=== PATIENT | female | born 1950 | race Caucasian/White ===

== ENCOUNTER 2016-07-02 14:35 | Emergency (ER) | payer MEDICARE, MEDICAID ==
--- NOTE | 2016-07-02 15:21 | Emergency Department Record ---
History of Present Illness - General Chief Complaint: Dizziness Stated Complaint: DIZZY/LOW BP Time Seen by Provider: 07/02/16 15:21 Source: Patient Mode of Arrival: Ambulatory Limitations: No limitations - History of Present Illness Initial Comments: The patient is here due to being weak and lightheaded yesterday at her sisters house. She reportedly did have a systolic BP in the 90's per the caregiver. Today the patient is feeling a lot better and denies any dizziness or lightheadedness. The caregiver states he did take her BP and it was 95/60 so he decided to bring her to the ER. The patient denies any MANDUJANO, CP, SOB, SOBEIDA or any nausea. She has been up walking today with no problems. She did trip last week and skin up her L knee but denies hitting her head. Complaint: Lightheadedness Onset/Timin -: Days(s) Timing: Unsure Description: Other History of Same: No Severity: Mild Improves With: Nothing Worsens With: Nothing Associated Symptoms: Denies other symptoms - [place] Coma Scale Eye Response: (4) Open spontaneously Motor Response: (6) Obeys commands Verbal Response: (5) Oriented [place] Total: 15 - Related Data Home Medications Medication Instructions Recorded Confirmed Last Taken Aspirin [Ecotrin] 81 mg PO DAILY 04/12/14 07/02/16 04/11/14 Buspirone HCl [Buspar] 15 mg PO DAILY 04/12/14 07/02/16 04/11/14 Buspirone HCl [Buspar] 30 mg PO QHS 04/12/14 07/02/16 04/11/14 Calcium Carbonate [Calcium] 500 mg PO TID 04/12/14 07/02/16 04/11/14 Carvedilol [Coreg] 3.125 mg PO DAILY 04/12/14 07/02/16 04/11/14 Cholecalciferol (Vitamin D3) 1,000 unit PO ASDIR 04/12/14 07/02/16 04/11/14 [Vitamin D] Citalopram Hydrobromide [Celexa] 40 mg PO DAILY 04/12/14 07/02/16 04/11/14 Docusate Sodium [Colace] 100 mg PO DAILY 04/12/14 07/02/16 04/11/14 Lactobacillus Combination No.4 1 each PO DAILY 04/12/14 07/02/16 04/11/14 [Probiotic] Levothyroxine Sodium [Synthroid] 25 mcg PO DAILYTHY 04/12/14 07/02/16 04/11/14 Loratadine [Claritin] 10 mg PO DAILY 04/12/14 07/02/16 04/11/14 Omeprazole [Prilosec] 20 mg PO BID 04/12/14 07/02/16 04/11/14 Simvastatin [Zocor] 40 mg PO QHS 04/12/14 07/02/16 04/11/14 Solifenacin Succinate [Vesicare] 5 mg PO DAILY 04/12/14 07/02/16 04/11/14 Previous Rx's Medication Instructions Recorded Cephalexin [Keflex] 500 mg PO TID #21 cap 07/02/16 Allergies Allergy/AdvReac Type Severity Reaction Status Date / Time codeine Allergy ALTERED Verified 04/12/14 08:15 MENTAL STATUS ibuprofen Allergy PT UNSURE Verified 04/12/14 08:15 OF REACTION Penicillins Allergy RASH Verified 04/12/14 08:15 Sulfa (Sulfonamide Allergy RASH Verified 04/12/14 08:15 Antibiotics) Travel Screening - Travel/Exposure Within Last 30 Days Have you traveled within the last 30 days?: No Review of Systems Constitutional: Denies: Chills, Fever Eyes: Denies: Eye discharge ENT: Denies: Congestion Respiratory: Denies: Cough, Dyspnea Cardiovascular: Denies: Arrhythmia, Chest pain, Dyspnea on exertion Endocrine: Denies: Fatigue Gastrointestinal: Denies: Diarrhea, Vomiting Genitourinary: Denies: Dysuria Musculoskeletal: Denies: Back pain Skin: Reports: Bruising (to the L knee.) Past Medical History - SOCIAL HISTORY Smoking Status: Former smoker Alcohol Use: None Drug Use: None - RESPIRATORY Hx Respiratory Disorders: Yes Hx COPD: Yes - CARDIOVASCULAR Hx Cardio Disorders: Yes Hx Hypertension: Yes Comment:: High cholestrol, aortic valve replacement - NEURO Hx Neuro Disorders: No - GI Hx GI Disorders: No - Hx Genitourinary Disorders: No - ENDOCRINE Hx Endocrine Disorders: Yes Hx Thyroid Disease: Yes - MUSCULOSKELETAL Hx Musculoskeletal Disorders: Yes - PSYCH Hx Psych Problems: Yes Hx Anxiety: Yes - HEMATOLOGY/ONCOLOGY Hx Hematology/Oncology Disorders: No Family Medical History Any Significant Family History?: Yes Hx Cancer: Father, Mother Physical Exam - General General Appearance: Alert, Oriented x3, Cooperative, No acute distress - Head Head exam: Atraumatic, Normocephalic, Normal inspection - Eye Eye exam: Normal appearance, PERRL - ENT Throat exam: Normal inspection. negative: Tonsillar erythema, Tonsillar exudate - Neck Neck exam: Normal inspection, Full ROM. negative: Lymphadenopathy, Meningismus , Tenderness - Respiratory Respiratory exam: Normal lung sounds bilaterally. negative: Respiratory distress - Cardiovascular Cardiovascular Exam: Regular rate, Normal rhythm, Normal heart sounds - GI/Abdominal GI/Abdominal exam: Soft, Normal bowel sounds. negative: Tenderness - Extremities Extremities exam: Tenderness (There is very mild L patellar tenderness with a mild 1x1 cm abrasion present. There is very mild erythema surrounding the wound. ). negative: Normal inspection, Joint swelling - Neurological Neurological exam: Alert, Normal gait (The patient is ambulating normally.), Oriented X3. negative: Abnormal gait, Altered, Motor sensory deficit Course Vital Signs 07/02/16 15:12 Temperature 98.0 F Pulse Rate 77 Respiratory 12 Rate Blood Pressure 117/68 Pulse Ox 97 - Reevaluation(s) Reevaluation #1: The patient is doing very well here and is ambulating normally. I did discuss the BP with the patient and caregiver and that the numbers are normal here. The patient also does not have any symptoms here also. She is instructed to see her [employer] Service Officer on Saturday as planned. 07/02/16 16:33 Medical Decision Making - Data Complexity MDM Data: EKG Ordered and/or Reviewed - Lab Data Result diagrams: 07/02/16 15:35 07/02/16 15:35 - EKG Data -: EKG Interpreted by Me EKG: No Acute Changes, Normal EKG Disposition Disposition: Discharge Clinical Impression: Weakness generalized Disposition: Home, Self-Care Condition: (1) Good Instructions: Dizziness (ED) Additional Instructions: Please continue your regular medicines and add the oral Antibiotic as directed. Please see your [employer] Community Service Officer later this week as planned. Return to the ER for any problems or issues. Prescriptions: Cephalexin [Keflex] 500 mg PO TID #21 cap Forms: Patient Portal Access Time of Disposition: 16:28
[2016-07-02] MEDS ORDERED: 0.9 % SODIUM CHLORIDE 1,000 ML BAG IV ONE (15:27)
[2016-07-02 15:43] LABS: BASO % 0.4 % (0-6); EOS % 5.4 % (0-6); GRAN % 56.1 % (47-80); HEMATOCRIT 36.5 % (35.0-47.0); HEMOGLOBIN 12.1 gm/dl (11.6-16.0); LYMPH % 27.4 % (16-45); MEAN CELL VOLUME 90.1 fl (81-97); MEAN CORPUSCULAR HEMOGLOBIN 29.9 pg (27-33); MEAN CORPUSCULAR HGB CONC 33.2 g/dl (32-36); MEAN PLATELET VOLUME 8.1 fl (7.4-10.4); MONO % 10.7 % (0-9); PLATELET COUNT 139 K/uL (130-400); RED BLOOD COUNT 4.05 M/uL (3.80-5.40); RED CELL DISTRIBUTION WIDTH 13.1 % (11.5-14.5); WHITE BLOOD COUNT W/O DIFF 5.7 K/uL (4.2-12.2)
[2016-07-02 15:58] LABS: ALB/GLOB RATIO 1.4 (1.1-1.8); ALBUMIN 4.4 gm/dL (3.5-5.0); ALKALINE PHOSPHATASE 99 U/L (38-126); ALT/SGPT 36 U/L (9-52); ANION GAP 10.5 (7-16); AST/SGOT 31 U/L (14-36); BILIRUBIN,TOTAL 0.45 mg/dL (0.2-1.3); BLOOD UREA NITROGEN 13 mg/dL (7-17); CARBON DIOXIDE 28.5 mmol/L (22-30); CREATINE PHOSPHOKINASE 68 U/L (30-135); CREATININE 0.8 mg/dL (0.52-1.04); EST GLOMERULAR FILTRATION RATE > 60 ml/min; GLUCOSE,RANDOM 96 mg/dL (70-110); TOTAL PROTEIN 7.5 gm/dL (6.3-8.2)
[2016-07-02] MEDS ORDERED: Diph,Pert(Acell),Tet Vac 0.5 ML SYR IM ONE (16:08)
[2016-07-02 16:10] LABS: CKMB 1.5 ug/L (0-6)
[2016-07-02 16:12] LABS: TROPONIN I < 0.012 ng/mL (0.00-0.034)
== END 2016-07-02 16:50 | disposition home or self-care (01) ==
LOC: ER 14:35
DX: S80.212A Abrasion, left knee, initial encounter (principal); R53.1 Weakness; R42 Dizziness and giddiness; I95.9 Hypotension, unspecified; I10 Essential (primary) hypertension; J44.9 Chronic obstructive pulmonary disease, unspecified; Z87.891 Personal history of nicotine dependence
CPT/HCPCS: 80053; 82550; 82553; 84484; 85025; 90715; 93005; 93010; 96360; 96372; 99284; J7030

== ENCOUNTER 2017-05-23 18:11 | Emergency (ER) | payer MEDICARE, MEDICAID ==
--- NOTE | 2017-05-23 18:39 | Emergency Department Record ---
History of Present Illness - General Chief Complaint: Cough Stated Complaint: COUGH AND FEVER Time Seen by Provider: 05/23/17 18:31 Source: Patient Mode of Arrival: Ambulatory Limitations: No limitations - History of Present Illness Initial Comments: 67 yo female presents with a cough for about 3 days. The cough has been non productive. She did not develop a fever until today. [facility] A resident did test positive for the Influenza. No vomiting, chest pain or shortness of breath. She has had a few loose stools. No abdominal pain. She did have a flue shot. She did start antibiotics yesterday (Zithromax). MD Complaint: Cough, Fever, Nasal congestion, Rhinorrhea Onset/Timin -: Days(s) Consistency: Constant Improves With: Nothing Worsens With: Other (cough) Context: Sick contacts Associated Symptoms: Cough, Diarrhea Treatments Prior to Arrival: Acetaminophen (2 tabs) - Related Data Previous Rx's Medication Instructions Recorded Oseltamivir Phosphate [Tamiflu] 75 mg PO BID #10 capsule 05/23/17 Allergies Allergy/AdvReac Type Severity Reaction Status Date / Time codeine Allergy ALTERED Unverified 04/25/17 08:48 MENTAL STATUS ibuprofen Allergy PT UNSURE Unverified 04/25/17 08:48 OF REACTION Penicillins Allergy RASH Unverified 04/25/17 08:48 Sulfa (Sulfonamide Allergy RASH Unverified 04/25/17 08:48 Antibiotics) Travel Screening - Travel/Exposure Within Last 30 Days Have you traveled within the last 30 days?: No Review of Systems Constitutional: Reports: Fever. Denies: Chills, Malaise, Weakness Eyes: Denies: Eye discharge, Eye pain, Vision change ENT: Reports: Congestion. Denies: Ear pain, Throat pain Respiratory: Reports: Cough. Denies: Dyspnea, Hemoptysis, Stridor Cardiovascular: Denies: Chest pain, Palpitations, Syncope Endocrine: Denies: Fatigue Gastrointestinal: Reports: Diarrhea. Denies: Abdominal pain, Constipation, Hematemesis, Hematochezia, Melena, Nausea, Vomiting Genitourinary: Denies: Dysuria, Urgency Musculoskeletal: Denies: Arthralgia, Back pain, Myalgia Skin: Denies: Bruising, Change in color, Rash Neurological: Denies: Confusion, Headache, Numbness, Weakness Psychiatric: Denies: Anxiety Hematological/Lymphatic: Denies: Anemia, Blood Clots, Easy bleeding, Easy bruising, Swollen glands Past Medical History - SOCIAL HISTORY Smoking Status: Former smoker Alcohol Use: None Drug Use: None - RESPIRATORY Hx Respiratory Disorders: Yes Hx COPD: Yes - CARDIOVASCULAR Hx Cardio Disorders: Yes Hx Hypertension: Yes Comment:: High cholestrol, aortic valve replacement - NEURO Hx Neuro Disorders: No - GI Hx GI Disorders: No - Hx Genitourinary Disorders: No - ENDOCRINE Hx Endocrine Disorders: Yes Hx Thyroid Disease: Yes - MUSCULOSKELETAL Hx Musculoskeletal Disorders: Yes - PSYCH Hx Psych Problems: Yes Hx Anxiety: Yes - HEMATOLOGY/ONCOLOGY Hx Hematology/Oncology Disorders: No Family Medical History Any Significant Family History?: Yes Hx Cancer: Father, Mother Physical Exam - General General Appearance: Alert, Oriented x3, Cooperative, No acute distress Limitations: No limitations - Head Head exam: Normal inspection - Eye Eye exam: Normal appearance, PERRL. negative: Conjunctival injection, Periorbital swelling - ENT ENT exam: Normal exam, Mucous membranes moist, Normal orophraynx Ear exam: Normal external inspection Nasal Exam: Normal inspection Mouth exam: Normal external inspection Teeth exam: Normal inspection Throat exam: Normal inspection - Neck Neck exam: Normal inspection, Full ROM. negative: Tenderness - Respiratory Respiratory exam: Rhonchi (bases, mild, non labored, no conversational dyspnea) . negative: Normal lung sounds bilaterally, Accessory muscle use, Chest wall tenderness, Decreased breath sounds, Prolonged expiratory, Respiratory distress , Stridor, Wheezes - Cardiovascular Cardiovascular Exam: Regular rate, Normal rhythm, Normal heart sounds - GI/Abdominal GI/Abdominal exam: Soft. negative: Tenderness - Rectal Rectal exam: Deferred - exam: Deferred - Extremities Extremities exam: Normal inspection, Full ROM, Normal capillary refill. negative: Tenderness - Back Back exam: Reports: Normal inspection, Full ROM. Denies: CVA tenderness (R), CVA tenderness (L), Muscle spasm, Rash noted, Tenderness - Neurological Neurological exam: Alert, Normal gait, Oriented X3 - Psychiatric Psychiatric exam: Normal affect, Normal mood. negative: Agitated, Anxious - Skin Skin exam: Dry, Intact, Normal color, Warm Course Vital Signs 05/23/17 18:14 Temperature 99.4 F Pulse Rate 98 H Respiratory 20 Rate Blood Pressure 122/69 Pulse Ox 97 - Reevaluation(s) Reevaluation #1: The patient was seen and examined She is comfortable, non labored, no signs of distress or discomfort 05/23/17 18:37 05/23/17 18:52 The patient is Influenza A positive She can continue the ZPack per her prior visit as well CXR reviewed. Disposition Disposition: Discharge Clinical Impression: Influenza A Disposition: Home, Self-Care Condition: (1) Good Instructions: Influenza (ED) Additional Instructions: Call your doctor for close follow up Return if worse or any new concerns You are contagious Wear a mask if coughing Prescriptions: Oseltamivir Phosphate [Tamiflu] 75 mg PO BID #10 capsule Forms: Patient Portal Access Time of Disposition: 18:53 Quality - Quality Measures Quality Measures: N/A - Blood Pressure Screening Does Patient Have Any of the Following: No Blood Pressure Classification: Pre-Hypertensive BP Reading Systolic Measurement: 122 Diastolic Measurement: 69 Screening for High Blood Pressure: < Pre-Hypertensive BP, F/U Documented > [ G8950] Pre-Hypertensive Follow-up Interventions: Referral to alternative/primary care provider.
[2017-05-23] MEDS ORDERED: OSTELTAMIVIR 75 MG CAP PO ONE (18:43)
[2017-05-23 18:47] LABS: INFLUENZA A POSITIVE (NEGATIVE); INFLUENZA B NEGATIVE (NEGATIVE)
--- NOTE | 2017-05-24 21:07 | RADIOLOGY REPORT ---
EXAM: CHEST 2 VIEWS HISTORY: COUGH AND FEVER. TECHNIQUE: Upright PA and lateral views of the chest. COMPARISON: Two-view chest radiographic examination dated 03/25/2017 at 0923. FINDINGS: The heart is not enlarged. A prosthetic aortic valve is again suggested. No pulmonary venous hypertension is seen. The thoracic aorta is tortuous and atherosclerotic. The lungs and pleural spaces remain clear with the exception of minor compressive atelectasis in the medial left base secondary to a large hiatal hernia There are degenerative changes scattered within the visualized spine. Mild wedge deformity of a single lumbar vertebral body is likely stable. IMPRESSION: NO EVIDENCE OF ACUTE CARDIOPULMONARY DISEASE WITHOUT SIGNIFICANT CHANGE SINCE . JOB NUMBER: [id number] MTDD
== END 2017-05-23 19:06 | disposition home or self-care (01) ==
LOC: ER 18:11
DX: J10.1 Influenza due to other identified influenza virus with other respiratory manifestations (principal); R05 Cough; I10 Essential (primary) hypertension; Z87.891 Personal history of nicotine dependence
CPT/HCPCS: 71046; 87400; 99283

== ENCOUNTER 2017-07-14 23:19 | Emergency (ER) | payer MEDICARE, MEDICAID ==
--- NOTE | 2017-07-14 23:34 | Emergency Department Record ---
History of Present Illness - General Chief complaint: Extremity Problem Stated complaint: HAND INJURY Time Seen by Provider: 07/14/17 23:28 Source: Patient Mode of Arrival: Ambulatory Limitations: No limitations - History of Present Illness Initial comments: The patient is here due to R hand and wrist pain. The patient was [facility] and injured her R hand. It did swell up very quickly per the caregiver. The patient denies any elbow pain or hand numbness. MD Complaint: Extremity pain Onset/Timin -: Hour(s) Location: Right, Hand History of Same: No Radiation: None Severity scale (1-10): 7 Worsens with: Palpation - Related Data Previous Rx's Medication Instructions Recorded Hydrocodone/Acetaminophen [[place] 1 each PO QID #15 tablet 07/15/17 5-325 Tablet] Allergies Allergy/AdvReac Type Severity Reaction Status Date / Time codeine Allergy ALTERED Unverified 06/10/17 09:10 MENTAL STATUS ibuprofen Allergy PT UNSURE Unverified 06/10/17 09:10 OF REACTION Penicillins Allergy RASH Unverified 06/10/17 09:10 Sulfa (Sulfonamide Allergy RASH Unverified 06/10/17 09:10 Antibiotics) Travel Screening - Travel/Exposure Within Last 30 Days Have you traveled within the last 30 days?: No Review of Systems Constitutional: Denies: Chills, Fever Past Medical History - SOCIAL HISTORY Smoking Status: Former smoker - RESPIRATORY Hx Respiratory Disorders: Yes Hx COPD: Yes - CARDIOVASCULAR Hx Cardio Disorders: Yes Hx Hypertension: Yes Comment:: High cholestrol, aortic valve replacement - NEURO Hx Neuro Disorders: No - GI Hx GI Disorders: No - Hx Genitourinary Disorders: No - ENDOCRINE Hx Endocrine Disorders: Yes Hx Thyroid Disease: Yes - MUSCULOSKELETAL Hx Musculoskeletal Disorders: Yes - PSYCH Hx Psych Problems: Yes Hx Anxiety: Yes - HEMATOLOGY/ONCOLOGY Hx Hematology/Oncology Disorders: No Family Medical History Any Significant Family History?: Yes Hx Cancer: Father, Mother Physical Exam - General General Appearance: Alert, Cooperative, No acute distress - Head Head exam: Atraumatic, Normocephalic - Eye Eye exam: Normal appearance, PERRL - Extremities Extremities exam: Full ROM (There is full ROM of the R hand and wrist with pain. ), Normal capillary refill, Tenderness (there is tenderness to palpation present over the dorsal proximal hand and carpals on the radial side.). negative: Normal inspection Image of Hand: 1 - Area of swelling and edema and tenderness. Course Vital Signs 07/14/17 23:26 Temperature 97.4 F L Pulse Rate [ 82 Pulse Ox Probe] Respiratory 24 Rate Blood Pressure 181/77 [Left Arm] Pulse Ox 95 - Reevaluation(s) Reevaluation #1: The patient does have a distal radius and ulna fx with mild posterior cortex impaction. There may be a fx line into the joint also so the patient will need to see an Orthopedic doctor. I did discuss the issue with the patient's caregiver and will refer the patient to Dr. Avitia. 07/14/17 23:59 Medical Decision Making - Data Complexity MDM Data: X-Ray Ordered and/or Reviewed - Radiology Data Radiology results: Report reviewed (R Wrist: Distal radius and ulna fx. The Radius fx does appear to progress intra-articular. There is no significant displacement.) Disposition Disposition: Discharge Clinical Impression: Wrist fracture, right Qualifiers: Encounter type: initial encounter Fracture type: closed Qualified Code(s): S62.101A - Fracture of unspecified carpal bone, right wrist, initial encounter for closed fracture Disposition: Home, Self-Care Condition: (2) Stable Instructions: Wrist Fracture in Adults (ED) Additional Instructions: Please ice and elevate the R wrist when possible. Use the splint at all times and keep the splint dry. Please take Tylenol OR [place] for pain and F/U with Dr. Avitia in the Specialty clinic later this week. Return to the ER for any worsening symptoms. Prescriptions: Hydrocodone/Acetaminophen [[place] 5-325 Tablet] 1 each PO QID #15 tablet Referrals: [facility] Specialty Clinics [Provider Group] KASSI AVITIA [DOCTOR OF OSTEOPATH] - Forms: Patient Portal Access Time of Disposition: 00:03 Quality - Quality Measures Quality Measures: N/A - Blood Pressure Screening View Details: Yes Does Patient Have Any of the Following: No Blood Pressure Classification: Pre-Hypertensive BP Reading Systolic Measurement: 177 Diastolic Measurement: 80 Screening for High Blood Pressure: < Pre-Hypertensive BP, F/U Documented > [ G8950] Pre-Hypertensive Follow-up Interventions: Referral to alternative/primary care provider.
[2017-07-14] MEDS ORDERED: HYDROCODONE/APAP 5/325MG TABLET PO ONE (23:57)
--- NOTE | 2017-07-16 07:57 | RADIOLOGY REPORT ---
EXAM: RIGHT HAND HISTORY: PATIENT FELL. TECHNIQUE: Three views of the right hand were obtained. FINDINGS: There is advanced degenerative arthritis at the PIP joint of the fourth finger and also mild degenerative arthritis at the fifth MCP joint. Mild soft tissue swelling at several of the PIP joints. No definite fracture of the right hand identified, however, there is seen to be a comminuted fracture of the distal radial metaphysis extending through the epiphysis into the radiocarpal joint. There is slight dorsal angulation of the major distal fracture fragment. There is also an undisplaced fracture of the base of the ulnar styloid. Some soft tissue swelling at the wrist. IMPRESSION: 1. FRACTURES OF THE DISTAL RADIUS AND ULNAR STYLOID. 2. DEGENERATIVE ARTHRITIS IN THE RIGHT HAND. 3. SOFT TISSUE SWELLING AT SEVERAL OF THE IP JOINTS OF THE HAND WELL AT THE LEVEL OF THE DISTAL RADIAL AND ULNAR FRACTURES. JOB NUMBER: [id number] MTDD
== END 2017-07-15 00:29 | disposition home or self-care (01) ==
LOC: ER 23:19
DX: S52.571A Other intraarticular fracture of lower end of right radius, initial encounter for closed fracture (principal); S52.611A Displaced fracture of right ulna styloid process, initial encounter for closed fracture; W51.XXXA Accidental striking against or bumped into by another person, initial encounter; Y92.009 Unspecified place in unspecified non-institutional (private) residence as the place of occurrence of the external cause; I10 Essential (primary) hypertension; Z87.891 Personal history of nicotine dependence
CPT/HCPCS: 99283